=== PATIENT | male | born 1955 | race Caucasian/White ===

== ENCOUNTER → 2020-08-05 | Day surgery (SDC) | payer OTHER ==
[~2020-08-05] VITALS: Ht 178.1 cm; Wt 91.1 kg
[~2020-08-05] MED LIST: ALLERGY RELIEF180 MG PO; ASPIRIN EC81 MG PO; COZAAR50 MG PO; DAILY VALUE1 EACH PO; LIPITOR20 MG PO; LOVAZA1 GM PO; NORCO 5-325 TA1 EACH PO; ONDANSETRON ODT8 MG PO; PRILOSEC20 MG PO; PROZAC20 MG PO; VITAMIN B 12 PO; VITAMIN D325 MC2 PO
[2020-08-05 07:35] LABS: HCT 38.5 % (42.0-52.0); HGB 12.6 g/dl (13.2-18.0); MCH 29.5 pg (25.0-31.0); MCHC 32.7 g/dL (32.0-36.0); MCV 90.2 fL (78.0-100.0); MPV 10.2 fL (6.0-9.5); RBC 4.27 M/uL (4.70-6.00); RDW 13.2 % (11.5-14.0); WBC 5.7 K/uL (4.0-10.5)
[2020-08-05 07:46] LABS: ALBUMIN 3.7 g/dL (3.4-5.0); BILIRUBIN - TOTAL 0.5 mg/dL (0.2-1.0); BUN/CREAT RATIO (CALC) 11.6 RATIO; CREATININE 1.12 mg/dL (0.67-1.17); GLOBULIN (CALCULATION) 3.5 g/dL; POTASSIUM 4.2 mmol/L (3.5-5.1); TOTAL PROTEIN 7.2 g/dL (6.4-8.2)
== END | disposition home or self-care (01) ==
LOC: FAS 06:42
PROVIDERS: Surgery
DX: K64.1 Second degree hemorrhoids (principal); F41.9 Anxiety disorder, unspecified; F32.9 Major depressive disorder, single episode, unspecified; E78.5 Hyperlipidemia, unspecified; N52.9 Male erectile dysfunction, unspecified; K21.9 Gastro-esophageal reflux disease without esophagitis; I10 Essential (primary) hypertension; E78.00 Pure hypercholesterolemia, unspecified; G47.30 Sleep apnea, unspecified; F17.200 Nicotine dependence, unspecified, uncomplicated
CPT/HCPCS: 36415; 80053; J1100; J2250; J2704; J7120